=== PATIENT | male | born 1955 | race Caucasian/White ===

== ENCOUNTER 2022-11-28 08:00 | Outpatient (RCR) | payer MEDICARE, OTHER, SELFPAY | END 2023-01-16 16:00 | disposition home or self-care (01) | LOC: HO.WCC 08:00 | PROVIDERS: PCP Family Medicine; Visit Provider Physician Assistant | DX: E11.621 Type 2 diabetes mellitus with foot ulcer (principal); L97.512 Non-pressure chronic ulcer of other part of right foot with fat layer exposed; E11.40 Type 2 diabetes mellitus with diabetic neuropathy, unspecified; I10 Essential (primary) hypertension; L84 Corns and callosities; Z89.422 Acquired absence of other left toe(s); Z89.421 Acquired absence of other right toe(s); Z86.73 Personal history of transient ischemic attack (TIA), and cerebral infarction without residual deficits | CPT/HCPCS: 11042; 99212 ==

== ENCOUNTER 2023-08-25 10:57 | Outpatient (RCR) | payer MEDICARE, OTHER, SELFPAY | END 2024-03-11 12:11 | disposition home or self-care (01) | LOC: HO.WCC 10:57 | PROVIDERS: Visit Provider Surgery | DX: Z09 Encounter for follow-up examination after completed treatment for conditions other than malignant neoplasm (principal); E11.40 Type 2 diabetes mellitus with diabetic neuropathy, unspecified; I10 Essential (primary) hypertension; Z87.2 Personal history of diseases of the skin and subcutaneous tissue; Z79.2 Long term (current) use of antibiotics; Z89.421 Acquired absence of other right toe(s); Z89.422 Acquired absence of other left toe(s); Z89.412 Acquired absence of left great toe; Z79.899 Other long term (current) drug therapy | CPT/HCPCS: 11042; 11043; 97597; 97602; 99212 ==